=== PATIENT | female | born 1985 | race Caucasian/White ===

== ENCOUNTER 2016-09-05 20:28 | Emergency (ER) | payer MEDICAID, OTHER ==
[2016-09-05] MEDS ORDERED: TRAMADOL 50 MG TAB ONE (22:28)
[2016-09-05] MEDS ORDERED: CYCLOBENZAPRINE 10 MG TAB ONE (22:29)
== END 2016-09-05 22:57 | disposition home or self-care (01) ==
LOC: ER 20:28
DX: S00.83XA Contusion of other part of head, initial encounter (principal); S40.011A Contusion of right shoulder, initial encounter; S50.11XA Contusion of right forearm, initial encounter; S70.01XA Contusion of right hip, initial encounter; V49.59XA Passenger injured in collision with other motor vehicles in traffic accident, initial encounter